=== PATIENT | male | born 1990 | race Hispanic/Latino ===

== ENCOUNTER 2022-10-10 16:23 | Emergency (ER) | payer OTHER | END 2022-10-10 19:08 | disposition home or self-care (01) | LOC: ERS 16:23 → EEVIPCON 16:23 → ERS 19:08 | DX: S05.12XA Contusion of eyeball and orbital tissues, left eye, initial encounter (principal); Y04.2XXA Assault by strike against or bumped into by another person, initial encounter | CPT/HCPCS: 70450; 70486 ==